=== PATIENT | female | born 1980 | race Caucasian/White ===

== ENCOUNTER 2025-01-07 09:52 | Emergency (ER) | payer OTHER, SELFPAY ==
--- NOTE | 2025-01-07 09:58 | ED_ITS ---
HPI - Dental/Oral General Chief complaint: Dental/Oral Stated complaint: Toothache Time Seen by Provider: 01/07/25 10:15 Source: patient, RN notes reviewed and old records reviewed Mode of arrival: ambulatory Limitations: no limitations History of Present Illness HPI Narrative: 44-year-old female presents to the [facility] with complaints of right lower dental pain. Multiple decayed teeth, receding gum line. Symptoms started 3 days ago Related Data Home Medications ?Medication ?Instructions ?Recorded ?Confirmed ?Last Taken ?Type Januvia 01/07/25 Unknown History glipizide 01/07/25 Unknown History metformin 01/07/25 Unknown History Allergies Allergy/AdvReac Type Severity Reaction Status Date / Time No Known Allergies Allergy Verified 01/07/25 10:04 Review of Systems Review of Systems: All systems reviewed & are unremarkable except as noted in HPI and below Constitutional: Constitutional: Reports no additional constitutional complaints ENT: Reports as per HPI and Reports dental pain Cardiovascular: Cardiovascular: Reports no additional cardiovascular complaints, Denies chest pain and Denies dyspnea Respiratory: Respiratory: Reports no additional respiratory complaints, Denies chest congestion, Denies cough and Denies dyspnea Musculoskeletal: Musculoskeletal: Reports no additional musculoskeletal complaints Integumentary/Breasts: Skin/Breast: Reports system reviewed and no additional complaints, except as docu PMFSH Comments At the time of my signature, I reviewed and agree with the nursing past medical, surgical, social, and family history. There is no relevant family history pertinent to the patient complaint. Exam Const: General: cooperative, healthy appearing, comfortable, no acute distress, well developed, alert and well nourished Nutritional Appearance: well nourished Orientation/consciousness: patient oriented x3 Limitations: no limitations HENMT: Head: normal to inspection Ears: hearing grossly normal bilaterally, external ears normal, TM's normal bilaterally, EAC's normal, mastoids normal and no periauricular adenopathy Mouth: Yes Normal oral and palatal mucosa present, Yes lip normal, Yes tongue normal and Yes moist mucous membranes Teeth and gingiva: abnormal tooth and associated gingiva, gingiva abnormal and poor dentition Other: Multiple missing, decayed teeth. Eyes: General: appearance normal, both eyes and all related structures Alignment and Position: alignment normal Neck: Neck: normal visual inspection, full ROM, no lymphadenopathy and no meningeal signs Chest: Chest palpation & inspection: normal inspection of the chest Resp: Effort & Inspection: normal respiratory effort and able to speak in complete sentences Auscultation: clear to auscultation bilaterally, no crackles, no rales, no rhonchi and no wheezes Cardio: Rate: regular rate Skin: General skin exam: normal color and no rashes or lesions noted Neuro: General: patient oriented x3, gait normal, moves all extremities and no meningeal signs Cognition (Neuro): normal cognition Speech: normal speech Gait exam (Neuro): Normal gait present Extrem: General: normal to inspection, full ROM, capillary refill normal and normal gait Psych: Appearance: grossly normal and well kempt Mental Status: mental status grossly normal Speech and movement: Normal speech and movement present and Clear speech present Affect: normal affect Attitude: cooperative Course Course Level of Care: Express Care Visit Vital Signs Vital signs: Vital Signs Temperature 97.3 F L 01/07/25 10:06 Pulse Rate 73 01/07/25 10:06 Respiratory Rate 16 01/07/25 10:06 Blood Pressure 147/84 H 01/07/25 10:06 Pulse Oximetry 98 01/07/25 10:06 Oxygen Delivery Room Air 01/07/25 10:06 Temperature 97.3 F L 01/07/25 10:06 Pulse Rate 73 01/07/25 10:06 Respiratory Rate 16 01/07/25 10:06 Blood Pressure 147/84 H 01/07/25 10:06 Pulse Oximetry 98 01/07/25 10:06 Oxygen Delivery Room Air 01/07/25 10:06 Reviewed MDM - Dental/Oral MDM Narrative Medical decision making narrative: Patient sitting in exam. Nontoxic stable. Patient in no acute distress. Patient presents with 3 day history of dental issues. Patient with poor dentition, inflammation to the right lower gingiva with receding gum line. Handout for dental providers given Patient appropriate for outpatient treatment with close follow-up. Will treat with antibiotics, ibuprofen Discharge instructions reviewed with patient, as well as provided in writing per nursing staff. The instructions also include specific and strict return/GO TO THE ER as well as f/u information. All questions have been answered, and the patient deny any further questions with discharge and discharge plan. Some parts of this dictation were generated by voice recognition software and may contain typographical and/or grammatical inaccuracies. Differential Diagnosis Differential diagnosis: Likely gingival abscess, dental caries, toothache and dental abscess Critical Care Time Critical Care Time Critical Care Time: No Discharge Plan Discharge Clinical Impression: Dental caries, Dental abscess Patient Disposition: Home Condition: Stable Instructions: Antibiotic Form, Dental Abscess (ED), Toothache (ED) Additional Instructions: Finish the entire course of antibiotics Calder teeth twice a day and use a good mouth wash. After every time you eat be sure to use salt water rinses. Apply ice to face to help with pain. Take Tylenol alternating with Motrin as needed for pain. You can alternate every 4 hours You need to follow-up with a dental provider as soon as possible for further evaluation and treatment. A list of dental providers has been given to you Follow up with a Primary Care Provider (PCP) about medical needs. A PCP can help keep you healthy by preventive medicine and screening. Go to the ER for New or worsening symptoms. Patient Language: Telugu Prescriptions: New penicillin V potassium 500 mg tablet 500 mg PO QID 7 Days Qty: 28 0RF No Action glipizide Januvia metformin Follow-up/Referrals: PHYSICIAN,HOT SEALING MACHINE OPERATOR [Primary Care Provider] - Stand Alone Forms: Work/School Release IP Time of Disposition: 10:32
[2025-01-07 10:06] VITALS: BP 147/84; PULSE 73; RESP 16; TEMP 36.3; O2SAT 98
== END 2025-01-07 10:38 | disposition home or self-care (01) ==
PROVIDERS: Emergency Provider Nurse Practitioner
DX: K02.9 Dental caries, unspecified (principal); K04.7 Periapical abscess without sinus; E11.9 Type 2 diabetes mellitus without complications
CPT/HCPCS: 99213; G0463

== ENCOUNTER 2025-06-22 13:08 | Emergency (ER) | payer OTHER, SELFPAY ==
[2025-06-22 13:11] VITALS: BP 164/71; PULSE 80; RESP 16; TEMP 36.4; O2SAT 100
--- NOTE | 2025-06-22 13:14 | ED.DENTAL ---
HPI - Dental/Oral General Chief complaint: Dental/Oral Stated complaint: Tooth Pain Time Seen by Provider: 06/22/25 13:14 Source: patient Mode of arrival: ambulatory Limitations: no limitations History of Present Illness HPI Narrative: 45 yo F presents with R lower dental pain. 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 afebrile. All systems reviewed and negative except as noted above. Related Data Home Medications ?Medication ?Instructions ?Recorded ?Confirmed ?Last Taken ?Type Januvia 01/07/25 Unknown History glipizide 01/07/25 Unknown History metformin 01/07/25 Unknown History atorvastatin 20 mg tablet mg 06/22/25 Unknown History Allergies Allergy/AdvReac Type Severity Reaction Status Date / Time No Known Allergies Allergy Verified 06/22/25 13:15 PMFSH Comments At time of signature, agree with nursing past medical, surgical, social and family history. There is no relevant family history pertinent to the presenting complaint. Exam Narrative: GENERAL: This is a well-nourished, well-developed patient, in no apparent distress. HEAD: normocephalic, atraumatic. EYES: PERRL. Sclera clear/white. Vision is grossly intact. EARS: External ears normal NOSE: External nose normal MOUTH: tooth #30 tender on palpation. decayed. filling present. mild erythema and swelling to gums. NECK: Neck supple, non-tender without lymphadenopathy, masses or thyromegaly. CARDIOVASCULAR: Regular rate and rhythm without murmurs, gallops, or rubs. RESPIRATORY: Clear to auscultation. Breath sounds equal bilaterally. No wheezes, rales, or rhonchi. SKIN: warm, Dry, intact with no suspicious lesions or rash, good texture and turgor. NEURO: awake, alert, and oriented to person, place and time. There were no obvious focal neurologic abnormalities. EXTREMITIES: No joint tenderness, effusion, or edema noted. Course Course Level of Care: Express Care Visit Vital Signs Vital signs: Reviewed MDM - Dental/Oral MDM Narrative Medical decision making narrative: will treat dental pain with amoxicillin. Recommend follow-up with dentist next available appointment. Differential Diagnosis Differential diagnosis: Likely toothache and dental abscess Discharge Plan Discharge Clinical Impression: Toothache Patient Disposition: Home Condition: Stable Instructions: Antibiotic Form, Toothache (ED) Additional Instructions: Take antibiotic as prescribed until gone. Take Tylenol or ibuprofen every 6-8 hours as needed for pain. Follow-up with dentist at next available appointment. Patient Language: Stateless Prescriptions: New ibuprofen 800 mg tablet 800 mg PO TID PRN (Reason: pain) Qty: 30 0RF amoxicillin 875 mg tablet 875 mg PO Q12H 10 Days Qty: 20 0RF No Action glipizide Januvia metformin atorvastatin 20 mg tablet Follow-up/Referrals: PHYSICIAN,FORMS DESIGNER [Primary Care Provider, Internal Medicine] Time of Disposition: 13:21
--- OUTSIDE RECORDS SUMMARY | 2025-06-22 13:14 | XMS_ITS | Clinical Summary ---
Author Organization [facility] Address [address] [place] [address] Phone Care Team Providers Care Static Balancer Name Role Phone Brandon Vargas MD Primary Care Provider [phone] Allergies No known active allergies Medications naproxen (NAPROSYN) 500 MG Tablet Take 1 Tablet by mouth 2 times daily as needed for Mild or more severe pain. 20 Tablet 04/28/2025 Active Encounters Date Type Department Care Team Description 04/28/2025 11:39 AM CDT - 04/28/2025 1:21 PM CDT Emergency [facility] Emergency [address] [place] [address] Jo Ann Villeda, TRADEMARK AFFIXER, SUSTAINABILITY SPECIALIST Acute right-sided low back pain without sciatica Discharge Disposition: Discharged to home or Selfcare 04/28/2025 Travel from Last 3 Months Social History Tobacco Use Types Packs/Day Years Used Date Smoking Tobacco: Unknown Tobacco Cessation:Counseling Given: Not Answered Comments Unknown Sex and Gender Information Value Date Recorded Sex Assigned at Not on file Legal Sex Female 11:38 AM CDT Gender Identity Not on file Sexual Orientation Not on file Last Filed Vital Signs Vital Sign Reading Time Taken Comments Blood Pressure 134/83 04/28/2025 1:15 PM CDT Pulse 64 04/28/2025 1:15 PM CDT Temperature 37.2 C (99 F) 04/28/2025 11:45 AM CDT Respiratory Rate 18 04/28/2025 1:15 PM CDT Oxygen Saturation 100% 04/28/2025 1:15 PM CDT Inhaled Oxygen Concentration - - Weight 142.9 kg (315 lb) 04/28/2025 11:45 AM CDT Height 165.1 cm (5' 5) 04/28/2025 11:45 AM CDT Body Mass Index 52.42 04/28/2025 11:45 AM CDT Plan of Treatment Health Maintenance Due Date Last Done Comments Hepatitis C Virus (HCV) Screening 1979 Mammogram 1979 TdaP Immunization 1979 Hepatitis B Immunization (1 of 3 - 19+ 3-dose series) 1998 Pap Smear 02/05/2000 Cervical Cancer Screening (CCS) 2009 HPV/Cotest 2009 Discussion re Starting/Frequ ency of Mammograms 2019 Cologuard 02/05/2024 Colonoscopy 02/05/2024 Colorectal Cancer Screening 02/05/2024 Immunochemical Fecal Occult Blood 02/05/2024 Influenza Immunization (#1) 2025 SARS-COV-2 Immunization ( season) 2025 Respiratory Syncytial Virus (RSV) Immunization (Adult) (1 - 1-dose 75+ series) 2054 Human Papillomavirus (HPV) Immunization Aged Out No longer eligible b ased on patient's age to complete this topic Meningococcal Immunization (ACWY) Aged Out No longer eligible based on patient's age to complete this topic Pneumococcal Immunization Combined Aged Out No longer eligible based on patient's age to complete this topic Rotavirus Immunization Aged Out No lo nger eligible based on patient's age to complete this topic Procedures Procedure Name Priority Date/Time Associated Diagnosis Comments CT RENAL STONE STUDY (ABDOMEN AND PELVIS W/O CONTRAST) Stat with Interpretation 04/28/2025 12:28 PM CDT POCT URINE HCG () STAT 04/28/2025 12:08 PM CDT CBC WITH AUTO DIFFERENTIAL STAT 04/28/2025 12:05 PM CDT URINALYSIS REFLEX IF INDICATED BY ABNORMAL RESULTS STAT 04/28/2025 12:05 PM CDT LIPASE STAT 04/28/2025 12:05 PM CDT CMP (COMPREHENSIVE METABOLIC PANEL) STAT 04/28/2025 12:05 PM CDT COMPLETE BLOOD COUNT (CBC) WITH DIFF STAT 04/28/2025 12:05 PM CDT from Last 3 Months Results * CT RENAL STONE STUDY (ABDOMEN AND PELVIS W/O CONTRAST) (04/28/2025 12:28 PM CDT) Anatomical Region Laterality Modality Abdomen N/A Computed Tomogra phy 04/28/2025 1:05 PM CDT Impressions 04/28/2025 1:07 PM CDT IMPRESSION: No acute finding. Narrative 04/28/2025 1:07 PM CDT EXAM DESCRIPTION: CT RENAL STONE STUDY (ABDOMEN AND PELVIS W/O CONTRAST) REASON FOR STUDY: Intermittent right-sided flank pain that has been present for 2-3 weeks. TECHNIQUE: CT scan of the abdomen and pelvis performed without intravenous and without oral contrast using helical scanning technique. Reconstructed coronal and sagittal MPR images reviewed. All images stored on PACS. Automated exposure control was used as a dose optimization technique for this examination. COMPARISON: None available FINDINGS: The sensitivity for detection of visceral lesions is diminished without the use of intravenous contrast. LOWER CHEST: No significant pulmonary abnormalities. No effusion. LIVER: Normal size. No identified cystic or solid masses. GALLBLADDER: Normally distended with multiple subcentimeter stones. No surrounding induration. BILE DUCTS: No intrahepatic or extrahepatic ductal dilatation. SPLEEN: Normal size. No focal lesions. PANCREAS: No identified cystic or solid masses. No significant calcifications. No adjacent inflammation or peripancreatic fluid collections. Pancreatic duct not dilated. ADRENALS: Normal. KIDNEYS/URINARY TRACT: No identified significant cystic or solid masses. No stones. No hydronephrosis or hydroureter. Urinary bladder is unremarkable. GI: No dilated bowel loops. No obvious wall thickening. Normal appendix. No significant diverticular disease. PERITONEUM: No ascites or free air. RETROPERITONEUM: No mass or adenopathy. REPRODUCTIVE: No significant abnormality. VASCULATURE: No abdominal aortic aneurysm. MUSCULOSKELETAL: No significant abnormality. OTHER: No other abnormality. THIS IS AN ELECTRONICALLY VERIFIED FINAL REPORT 04/28/2025 1:05 PM - Electronically signed by Buck Vargas M.D. RB: APOLONIA Report ID: [id number] Reading Location: [id number] Procedure Note Buck Vargas MD - 04/28/2025 EXAM DESCRIPTION: CT RENAL STONE STUDY (ABDOMEN AND PELVIS W/O CONTRAST) REASON FOR STUDY: Intermittent right-sided flank pain that has been present for 2-3 weeks. TECHNIQUE: CT scan of the abdomen and pelvis performed without intravenous and without oral contrast using helical scanning technique. Reconstructed coronal and sagittal MPR images reviewed. All images stored on PACS. Automated exposure control was used as a dose optimization technique for this examination. COMPARISON: None available FINDINGS: The sensitivity for detection of visceral lesions is diminished without the use of intravenous contrast. LOWER CHEST: No significant pulmonary abnormalities. No effusion. LIVER: Normal size. No identified cystic or solid masses. GALLBLADDER: Normally distended with multiple subcentimeter stones. No surrounding induration. BILE DUCTS: No intrahepatic or extrahepatic ductal dilatation. SPLEEN: Normal size. No focal lesions. PANCREAS: No identified cystic or solid masses. No significant calcifications. No adjacent inflammation or peripancreatic fluid collections. Pancreatic duct not dilated. ADRENALS: Normal. KIDNEYS/URINARY TRACT: No identified significant cystic or solid masses. No stones. No hydronephrosis or hydroureter. Urinary bladder is unremarkable. GI: No dilated bowel loops. No obvious wall thickening. Normal appendix. No significant diverticular disease. PERITONEUM: No ascites or free air. RETROPERITONEUM: No mass or adenopathy. REPRODUCTIVE: No significant abnormality. VASCULATURE: No abdominal aortic aneurysm. MUSCULOSKELETAL: No significant abnormality. OTHER: No other abnormality. THIS IS AN ELECTRONICALLY VERIFIED FINAL REPORT 04/28/2025 1:05 PM - Electronically signed by Buck Vargas M.D. RB: APOLONIA Report ID: [id number] Reading Location: [id number] IMPRESSION: No acute finding. Jo Ann Villeda APRN, SUSTAINABILITY SPECIALIST IMG CT ORDERABLES Fin al Result * POCT Urine HCG () (04/28/2025 12:08 PM CDT) POC URINE Negative [facility] POC URINE CONTROL Antichecking Iron Worker Pass [facility] Urine 04/28/2025 12:0 8 PM CDT Jo Ann Villeda APRN, INDRA POINT OF CARE TESTING (MANUAL) Final Result [facility] [address] [place] [address] * (ABNORMAL) URINALYSIS REFLEX IF INDICATED BY ABNORMAL RESULTS (04/28/2025 12:05 PM CDT) Pathologist [facility] SPECIFIC GRAVITY 1.025 1.003 - 1.030 04/28/2025 12:49 PM CDT [facility] URINE PH 5.0 5.0 - 9.0 04/28/2025 12:49 PM CDT [facility] WBC ESTERASE 100 /uL(A) Negative 04/28/2025 12:49 PM CDT [facility] NITRITE Negative Negative 04/28/2025 12:49 PM CDT [facility] PROTEIN, RANDOM URINE 15 mg/dL(A) Negative 04/28/2025 12:49 PM CDT [facility] URINE GLUCOSE, QUAL Negative Negative 04/28/2025 12:49 PM CDT [facility] URINE KETONES Negative Negative 04/28/2025 12:49 PM CDT [facility] UROBILINOGEN Normal Normal mg/dL 04/28/2025 12:49 PM CDT [facility] URINE BLOOD Negative Negative charles/ul 04/28/2025 12:49 PM CDT [facility] URINALYSIS COLOR Yellow 04/28/20 12:49 PM CDT [facility] URINALYSIS CLARITY Slightly Cloudy 04/28/2025 12:49 PM CDT [facility] WBC (Urine) 0-5 Negative, 0-5 /hpf 04/28/2025 12:49 PM CDT [facility] URINE RBC'S 0-2 Negative, 0-2 /hpf 04/28/2025 12:49 PM CDT [facility] EPITHELIAL CELLS Large amount squamous /lpf 04/28/2025 12:49 PM CDT [facility] BACTERIA, URINE Few(A) Negative /hpf 04/28/2025 12:49 PM CDT [facility] TRICHOMONAS (UR) Few(A) Negative 04/28/20 12:49 PM CDT [facility] Urine URINE SPECIMEN OBTAINED BY CLEAN CATCH PROCEDURE / Unknown Non-Phlebotomy Collection / Unknown 04/28/2025 12:05 PM CDT 04/28/2025 12:22 PM CDT us Jo Ann Villeda TRADEMARK AFFIXER, SUSTAINABILITY SPECIALIST URINE ORDERABLES Maritza l Result [facility] [address] [place] [address] * (ABNORMAL) CBC with Auto Differential (04/28/2025 12:05 PM CDT) WBC 9.03 4.00 - 12.00 10(3)/mcL 04/28/2025 12:30 PM CDT [facility] RBC 4.18 3.80 - 5.30 10(6)/mcL 04/28/2025 12:30 PM CDT [facility] HEMOGLOBIN (HGB) 12.8 12.0 - 15.8 g/dL 04/28/2025 12:30 PM CDT [facility] HEMATOCRIT (HCT) 37.5 36.0 - 47.0 % 04/28/2025 12:30 PM CDT [facility] MCV 89.7 82.0 - 96.0 fL 04/28/2025 12:30 PM CDT [facility] MCH 30.6 26.0 - 34.0 pg 04/28/2025 12:30 PM CDT [facility] MCHC 34.1 31.0 - 36.0 g/dL 04/28/2025 12:30 PM CDT [facility] PLATELET COUNT 250 140 - 440 10(3)/mcL 04/28/2025 12:30 PM CDT [facility] RDW 12.3 11.8 - 15.5 % 04/28/2025 12:30 PM CDT [facility] MPV 10.7 9.7 - 12.4 fL 04/28/2025 12:30 PM CDT [facility] NEUTROPHILS 63.9 47.0 - 73.0 % 04/28/2025 12:30 PM CDT [facility] LYMPHOCYTES 27.1 18.0 - 42.0 % 04/28/2025 12:30 PM CDT [facility] MONOCYTES 7.2 4.0 - 12.0 % 04/28/2025 12:30 PM CDT [facility] EOSINOPHILS 1.1 0.0 - 5.0 % 04/28/2025 12:30 PM CDT [facility] BASOPHILS 0.3 0.0 - 1.0 % 04/28/2025 12:30 PM CDT [facility] IMMATURE GRANULOCYTE 0.4 0.0 - 0.4 % 04/28/2025 12:30 PM CDT [facility] Comment:Immature Granulocyte s includes Metamyelocytes, Myelocytes, and Promyelocytes. ABSOLUTE NEUTROPHILS 5.76 1.60 - 7.70 10(3)/mcL 04/28/2025 12:30 PM CDT [facility] ABSOLUTE LYMPHOCYTES 2.45 1.30 - 3.20 10(3)/mcL 04/28/2025 12:30 PM CDT [facility] ABSOLUTE MONOCYTES 0.65 0.20 - 1.00 10(3)/mcL 04/28/2025 12:30 PM CDT [facility] ABSOLUTE EOSINOPHIL 0.10 0.00 - 0.40 10(3)/mcL 04/28/2025 12:30 PM CDT [facility] ABSOLUTE BASOPHILS 0.03 0.00 - 0.10 10(3)/mcL 04/28/2025 12:30 PM CDT [facility] ABSOLUTE IMMATURE GRANULOCYTE 0.04(H) 0.00 - 0.03 10 (3) mcL. 04/28/2025 12:30 PM CDT [facility] NRBC PER 100 WBC 0 04/28/20 12:30 PM CDT [facility] Blood Venipuncture / Unknown 04/28/2025 12:05 PM CDT 04/28/2025 12:22 PM CDT us Jo Ann Villeda APRN, SUSTAINABILITY SPECIALIST HEMATOLOGY ORDERABLES Final Result [facility] [address] [place] [address] * Lipase [id number] (04/28/2025 12:05 PM CDT) Pathologist [facility] LIPASE 15 8 - 78 U/L 04/28/2025 12:50 PM CDT [facility] Blood Venipuncture / Unknown 04/28/2025 12:05 PM CDT 04/28/2025 12:22 PM CDT us Jo Ann Villeda APRN, SUSTAINABILITY SPECIALIST CHEMISTRY ORDERABLES Final Result [facility] [address] [place] [address] * (ABNORMAL) Comprehensive Metabolic Panel (Cmp) [id number] (04/28/2025 12:05 PM CDT) SODIUM 136 136 - 145 mmol/L 04/28/2025 12:50 PM CDT [facility] POTASSIUM 4.0 3.5 - 5.1 mmol/L 04/28/2025 12:50 PM CDT [facility] CHLORIDE 105 98 - 107 mmol/L 04/28/2025 12:50 PM CDT [facility] CO2, VENOUS 23 22 - 30 mmol/L 04/28/2025 12:50 PM CDT [facility] ANION GAP 12.0 <18.0 mmol/L 04/28/2025 12:50 PM CDT [facility] GLUCOSE 138(H) 70 - 99 mg/dL 04/28/2025 12:50 PM CDT [facility] BUN 10 5 - 18 mg/dL 04/28/2025 12:50 PM CDT [facility] CREATININE, BLOOD 0.62 0.60 - 1.00 mg/dL 04/28/2025 12:50 PM CDT [facility] BUN/CREATININE RATIO 16 12 - 20 ratio 04/28/2025 12:50 PM CDT [facility] TOTAL PROTEIN 7.0 6.0 - 8.0 g/dL 04/28/2025 12:50 PM CDT [facility] ALBUMIN 4.2 3.5 - 5.0 g/dL 04/28/2025 12:50 PM CDT [facility] A/G RATIO 1.5 1.0 - 2.2 04/28/2025 12:50 PM CDT [facility] CALCIUM 9.1 8.7 - 10.5 mg/dL 04/28/2025 12:50 PM CDT [facility] T BILI 0.7 0.2 - 1.2 mg/dL 04/28/2025 12:50 PM CDT [facility] SGOT (AST) 16 <43 U/L 04/28/2025 12:50 PM CDT [facility] SGPT (ALT) 12 <56 U/L 04/28/2025 12:50 PM CDT [facility] ALKALINE PHOSPHATASE 50 40 - 150 U/L 04/28/2025 12:50 PM CDT [facility] GFR, ESTIMATED >60 >=60 04/28/2025 12:50 PM CDT [facility] Comment: Creatinine Clearance is the preferred criteria for selecting drug dose adjustments in renally impaired patients. The GFR is provided as additional pertinent clinical information. GFR is reported in mL/min/1.73 sq m. Calculation based on the Chronic Kidney Disease Epidemiology Collaboration (CKD- EPI) equation refit without adjustment for race. GFR, EST. >60 >=60 025 12:50 PM CDT [facility] GFR, EST. NONAFRICAN >60 >=60 04/28/2025 12:50 PM CDT [facility] Blood Venipuncture / Unknown 04/28/2025 12:05 PM CDT 04/28/2025 12:22 PM CDT Jo Ann Villeda APRN, SUSTAINABILITY SPECIALIST CHEMISTRY ORDERABLES Final Result [facility] [address] [place] [address] from Last 3 Months Insurance MEDICAID [employer] Care Teams Static Balancer Relationship Specialty Start Date End Date Brandon Vargas MD [address] [place] [address] [place] [address] PCP - General Family Medicine 04/28/25
== END 2025-06-22 13:27 | disposition home or self-care (01) ==
PROVIDERS: Emergency Provider Nurse Practitioner Family
DX: K08.89 Other specified disorders of teeth and supporting structures (principal); E11.9 Type 2 diabetes mellitus without complications; Z79.84 Long term (current) use of oral hypoglycemic drugs; E78.00 Pure hypercholesterolemia, unspecified
CPT/HCPCS: 99213; G0463

== ENCOUNTER 2025-07-20 10:01 | Emergency (ER) | payer OTHER, SELFPAY ==
[2025-07-20 10:04] VITALS: BP 133/85; PULSE 84; RESP 24; TEMP 36.2; O2SAT 100
--- NOTE | 2025-07-20 10:18 | ED.DENTAL ---
HPI - Dental/Oral General Chief complaint: Dental/Oral Stated complaint: tooth pain Time Seen by Provider: 07/20/25 10:15 Source: patient Mode of arrival: ambulatory Limitations: no limitations History of Present Illness HPI Narrative: Foc is a 45-year-old female patient presenting to the clinic today with complaints of left lower dental pain x2 days. She reports she has swelling in the left lower jaw. Tender to palpate over this area. No fevers, chills, body aches. Denies any URI symptoms or ear pain. Rates pain 06/08 currently. Has taken some ibuprofen for pain. Related Data Home Medications ?Medication ?Instructions ?Recorded ?Confirmed ?Last Taken ?Type Januvia 01/07/25 Unknown History atorvastatin 20 mg tablet mg 06/22/25 Unknown History glipizide 10 mg tablet mg 07/20/25 Unknown History metformin 1,000 mg tablet mg 07/20/25 Unknown History Allergies Allergy/AdvReac Type Severity Reaction Status Date / Time No Known Allergies Allergy Verified 07/20/25 10:08 Review of Systems Review of Systems: Pertinent positives per HPI. Patient denies any fever, chills, rash, headache, visual changes, dizziness, cough, runny nose, sore throat, shortness of breath, chest pain, palpitations, nausea, vomiting, diarrhea, constipation, abdominal pain, or any urinary issues. PMFSH Comments At the time of my signature, I reviewed and agree with the nursing past medical, surgical, social, and family history. There is no relevant family history pertinent to the patient complaint. Exam Narrative: General: Well-developed, morbidly obese, in no apparent distress Head: Normocephalic, atraumatic Eyes: Pupils equally round and reactive to light bilaterally, EOM intact, sclera and conjunctive clear, no discharge, lids normal Ears: TMs intact and clear, ear canals clear, no drainage, grossly hearing normal. Nose: Nares patent, no discharge, no inflammation, no sinus tenderness. Mouth: Oropharynx without lesions or masses, poor dentition, MMM. Left lower jaw swelling with tenderness and tenderness to palpation over the left posterior molar. Neck: Supple, trachea midline, no enlargement of anterior or posterior cervical nodes, no thyroid masses or goiter palpable. Cardio: Regular rate and rhythm, s1 and s2 normal, no murmur appreciated. Resp: Clear to auscultation bilaterally anteriorly and posteriorly, no rhonchi, rales, wheezing or rubs Course Course Emergency Course: Portions of this record may have been created with voice recognition software. Level of Care: Express Care Visit Vital Signs Vital signs: Vital Signs Temperature 36.2 C L 07/20/25 10:04 Pulse Rate 84 07/20/25 10:04 Respiratory Rate 24 H 07/20/25 10:04 Blood Pressure 133/85 07/20/25 10:04 Pulse Oximetry 100 07/20/25 10:04 Oxygen Delivery Room Air 07/20/25 10:04 Temperature 36.2 C L 07/20/25 10:04 Pulse Rate 84 07/20/25 10:04 Respiratory Rate 24 H 07/20/25 10:04 Blood Pressure 133/85 07/20/25 10:04 Pulse Oximetry 100 07/20/25 10:04 Oxygen Delivery Room Air 07/20/25 10:04 Vital signs reviewed MDM - Dental/Oral MDM Narrative Medical decision making narrative: At the time of visit patient is resting comfortably on the exam table. Patient appears to be nontoxic. complaints of left lower dental pain x2 days. She reports she has swelling in the left lower jaw. Tender to palpate over this area. No fevers, chills, body aches. Denies any URI symptoms or ear pain. Rates pain 9/10 currently. Has taken some ibuprofen for pain. On exam patient has poor dentition with jaw swelling and tenderness to palpation over the left posterior molar. Plan: I suspect patient has a dental abscess/dental infection. Prescription for Augmentin and ibuprofen was sent to the pharmacy. Work note was given per patient's request. Supportive measures were discussed with the patient and they voiced understanding discharge instructions and agrees to treatment plan. Return precautions reviewed Differential Diagnosis Differential diagnosis: Likely gingival abscess, dental caries, toothache, dental abscess, fracture of tooth and aphthous ulcer Discharge Plan Discharge Clinical Impression: Dental abscess Patient Disposition: Home Condition: Stable Instructions: Antibiotic Form, Dental Abscess (ED) Additional Instructions: Keep a tight control in your blood sugar. Take medications as prescribed-Augmentin and ibuprofen Increase fluids and stay well hydrated May take Tylenol/Motrin as needed for pain or fever May apply Orajel to the affected area to help alleviate pain May apply warm or cool compress to the affected area to help alleviate pain Follow-up with your dentist as soon as possible If symptoms worsen-you develop fever, increase in swelling, increase in pain, difficulty swallowing, or any other concerning symptoms recommend going to the emergency room Patient Language: Mongolian Prescriptions: New amoxicillin-pot clavulanate 875-125 mg tablet 1 tablet PO Q12H 10 Days Qty: 20 0RF ibuprofen 800 mg tablet 800 mg PO TID PRN (Reason: pain) 10 Days Qty: 30 0RF No Action Januvia glipizide 10 mg tablet metformin 1,000 mg tablet atorvastatin 20 mg tablet Follow-up/Referrals: PHYSICIAN,STICK FEEDER [Primary Care Provider, Internal Medicine] Stand Alone Forms: Work/School Release IP Time of Disposition: 10:20 Quality NIHSS Nursing Documentation ED NIHSS nursing documentation: reviewed/agree
--- OUTSIDE RECORDS SUMMARY | 2025-07-20 11:49 | XMS_ITS | Clinical Summary ---
Author Organization [facility] Address [address] [place] [address] Phone Care Team Providers Care Gynecological Assistant Name Role Phone Brandon Vargas MD Primary Care Provider [phone] Allergies No known active allergies Medications naproxen (NAPROSYN) 500 MG Tablet Take 1 Tablet by mouth 2 times daily as needed for Mild or more severe pain. 20 Tablet 04/28/2025 Active Encounters Date Type Department Care Team Description 04/28/2025 11:39 AM CDT - 04/28/2025 1:21 PM CDT Emergency [facility] Emergency [address] [place] [address] Jo Ann Villeda, OUTSOLE SCHEDULER, VP ANCILLARY Acute right-sided low back pain without sciatica [...] Buck Vargas M.D. RB: APOLONIA Report ID: [id number] Reading Location: [id number] Procedure Note Buck Vargas MD - 04/28/2025 [...] Buck Vargas M.D. RB: APOLONIA Report ID: [id number] Reading Location: [id number] IMPRESSION: No acute finding. Jo Ann Villeda APRN, VP ANCILLARY IMG CT ORDERABLES Fin al Result * POCT Urine HCG () (04/28/2025 12:08 PM CDT) POC URINE Negative [facility] POC URINE CONTROL [place] [facility] Urine 04/28/2025 12:0 8 PM CDT Jo Ann Villeda APRN, INDRA POINT OF CARE TESTING (MANUAL) Final Result [facility] [address] [place] [address] * (ABNORMAL) URINALYSIS REFLEX IF INDICATED BY ABNORMAL RESULTS (04/28/2025 12:05 PM CDT) Pathologist [facility] SPECIFIC GRAVITY 1.025 1.003 - 1.030 04/28/2025 12:49 PM CDT [facility] URINE PH 5.0 5.0 - 9.0 04/28/2025 12:49 PM CDT [facility] WBC ESTERASE 100 /uL(A) Negative 04/28/2025 12:49 PM CDT [facility] NITRITE Negative Negative 04/28/2025 12:49 PM CDT [facility] PROTEIN, RANDOM URINE 15 mg/dL(A) Negative 04/28/2025 12:49 PM CDT [facility] URINE GLUCOSE, QUAL Negative Negative 04/28/2025 12:49 PM CDT [facility] URINE KETONES Negative Negative 04/28/2025 12:49 PM CDT [facility] UROBILINOGEN Normal Normal mg/dL 04/28/2025 12:49 PM CDT [facility] URINE BLOOD Negative Negative charles/ul 04/28/2025 12:49 PM CDT [facility] URINALYSIS COLOR Yellow 04/28/20 12:49 PM CDT [facility] URINALYSIS CLARITY Slightly Cloudy 04/28/2025 12:49 PM CDT [facility] WBC (Urine) 0-5 Negative, 0-5 /hpf 04/28/2025 12:49 PM CDT [facility] URINE RBC'S 0-2 Negative, 0-2 /hpf 04/28/2025 12:49 PM CDT [facility] EPITHELIAL CELLS Large amount squamous /lpf 04/28/2025 12:49 PM CDT [facility] BACTERIA, URINE Few(A) Negative /hpf 04/28/2025 12:49 PM CDT [facility] TRICHOMONAS (UR) Few(A) Negative 04/28/20 12:49 PM CDT [facility] Urine URINE SPECIMEN OBTAINED BY CLEAN CATCH PROCEDURE / Unknown Non-Phlebotomy Collection / Unknown 04/28/2025 12:05 PM CDT 04/28/2025 12:22 PM CDT us Jo Ann Villeda OUTSOLE SCHEDULER, VP ANCILLARY URINE ORDERABLES Maritza l Result [facility] [address] [place] [address] * (ABNORMAL) CBC with Auto Differential (04/28/2025 12:05 PM CDT) WBC 9.03 4.00 - 12.00 10(3)/mcL 04/28/2025 12:30 PM CDT [facility] RBC 4.18 3.80 - 5.30 10(6)/mcL 04/28/2025 12:30 PM CDT [facility] HEMOGLOBIN (HGB) 12.8 12.0 - 15.8 g/dL 04/28/2025 12:30 PM CDT [facility] HEMATOCRIT (HCT) 37.5 36.0 - 47.0 % 04/28/2025 12:30 PM CDT [facility] MCV 89.7 82.0 - 96.0 fL 04/28/2025 12:30 PM CDT [facility] MCH 30.6 26.0 - 34.0 pg 04/28/2025 12:30 PM CDT [facility] MCHC 34.1 31.0 - 36.0 g/dL 04/28/2025 12:30 PM CDT [facility] PLATELET COUNT 250 140 - 440 10(3)/mcL 04/28/2025 12:30 PM CDT [facility] RDW 12.3 11.8 - 15.5 % 04/28/2025 12:30 PM CDT [facility] MPV 10.7 9.7 - 12.4 fL 04/28/2025 12:30 PM CDT [facility] NEUTROPHILS 63.9 47.0 - 73.0 % 04/28/2025 12:30 PM CDT [facility] LYMPHOCYTES 27.1 18.0 - 42.0 % 04/28/2025 12:30 PM CDT [facility] MONOCYTES 7.2 4.0 - 12.0 % 04/28/2025 12:30 PM CDT [facility] EOSINOPHILS 1.1 0.0 - 5.0 % 04/28/2025 12:30 PM CDT [facility] BASOPHILS 0.3 0.0 - 1.0 % 04/28/2025 12:30 PM CDT [facility] IMMATURE GRANULOCYTE 0.4 0.0 - 0.4 % 04/28/2025 12:30 PM CDT [facility] Comment:Immature Granulocyte s includes Metamyelocytes, Myelocytes, and Promyelocytes. ABSOLUTE NEUTROPHILS 5.76 1.60 - 7.70 10(3)/mcL 04/28/2025 12:30 PM CDT [facility] ABSOLUTE LYMPHOCYTES 2.45 1.30 - 3.20 10(3)/mcL 04/28/2025 12:30 PM CDT [facility] ABSOLUTE MONOCYTES 0.65 0.20 - 1.00 10(3)/mcL 04/28/2025 12:30 PM CDT [facility] ABSOLUTE EOSINOPHIL 0.10 0.00 - 0.40 10(3)/mcL 04/28/2025 12:30 PM CDT [facility] ABSOLUTE BASOPHILS 0.03 0.00 - 0.10 10(3)/mcL 04/28/2025 12:30 PM CDT [facility] ABSOLUTE IMMATURE GRANULOCYTE 0.04(H) 0.00 - 0.03 10 (3) mcL. 04/28/2025 12:30 PM CDT [facility] NRBC PER 100 WBC 0 04/28/20 12:30 PM CDT [facility] Blood Venipuncture / Unknown 04/28/2025 12:05 PM CDT 04/28/2025 12:22 PM CDT us Jo Ann Villeda APRN, VP ANCILLARY HEMATOLOGY ORDERABLES Final Result [facility] [address] [place] [address] * Lipase [id number] (04/28/2025 12:05 PM CDT) Pathologist [facility] LIPASE 15 8 - 78 U/L 04/28/2025 12:50 PM CDT [facility] Blood Venipuncture / Unknown 04/28/2025 12:05 PM CDT 04/28/2025 12:22 PM CDT us Jo Ann Villeda APRN, VP ANCILLARY CHEMISTRY ORDERABLES Final Result [facility] [address] [place] [address] * (ABNORMAL) Comprehensive Metabolic Panel (Cmp) [id number] (04/28/2025 12:05 PM CDT) SODIUM 136 136 - 145 mmol/L 04/28/2025 12:50 PM CDT [facility] POTASSIUM 4.0 3.5 - 5.1 mmol/L 04/28/2025 12:50 PM CDT [facility] CHLORIDE 105 98 - 107 mmol/L 04/28/2025 12:50 PM CDT [facility] CO2, VENOUS 23 22 - 30 mmol/L 04/28/2025 12:50 PM CDT [facility] ANION GAP 12.0 <18.0 mmol/L 04/28/2025 12:50 PM CDT [facility] GLUCOSE 138(H) 70 - 99 mg/dL 04/28/2025 12:50 PM CDT [facility] BUN 10 5 - 18 mg/dL 04/28/2025 12:50 PM CDT [facility] CREATININE, BLOOD 0.62 0.60 - 1.00 mg/dL 04/28/2025 12:50 PM CDT [facility] BUN/CREATININE RATIO 16 12 - 20 ratio 04/28/2025 12:50 PM CDT [facility] TOTAL PROTEIN 7.0 6.0 - 8.0 g/dL 04/28/2025 12:50 PM CDT [facility] ALBUMIN 4.2 3.5 - 5.0 g/dL 04/28/2025 12:50 PM CDT [facility] A/G RATIO 1.5 1.0 - 2.2 04/28/2025 12:50 PM CDT [facility] CALCIUM 9.1 8.7 - 10.5 mg/dL 04/28/2025 12:50 PM CDT [facility] T BILI 0.7 0.2 - 1.2 mg/dL 04/28/2025 12:50 PM CDT [facility] SGOT (AST) 16 <43 U/L 04/28/2025 12:50 PM CDT [facility] SGPT (ALT) 12 <56 U/L 04/28/2025 12:50 PM CDT [facility] ALKALINE PHOSPHATASE 50 40 - 150 U/L 04/28/2025 12:50 PM CDT [facility] GFR, ESTIMATED >60 >=60 04/28/2025 12:50 PM CDT [facility] Comment: Creatinine Clearance is the preferred criteria for selecting drug dose adjustments in renally impaired patients. The GFR is provided as additional pertinent clinical information. GFR is reported in mL/min/1.73 sq m. Calculation based on the Chronic Kidney Disease Epidemiology Collaboration (CKD- EPI) equation refit without adjustment for race. GFR, EST. >60 >=60 025 12:50 PM CDT [facility] GFR, EST. NONAFRICAN >60 >=60 04/28/2025 12:50 PM CDT [facility] Blood Venipuncture / Unknown 04/28/2025 12:05 PM CDT 04/28/2025 12:22 PM CDT Jo Ann Villeda APRN, VP ANCILLARY CHEMISTRY ORDERABLES Final Result [facility] [address] [place] [address] from Last 3 Months Insurance MEDICAID [employer] Care Teams Gynecological Assistant Relationship Specialty Start Date End Date Brandon Vargas MD [address] [place] [address] [place] [address] PCP - General Family Medicine 04/28/25
== END 2025-07-20 10:23 | disposition home or self-care (01) ==
PROVIDERS: Emergency Provider Nurse Practitioner Family
DX: K04.7 Periapical abscess without sinus (principal); E11.9 Type 2 diabetes mellitus without complications; Z79.84 Long term (current) use of oral hypoglycemic drugs; E78.00 Pure hypercholesterolemia, unspecified
CPT/HCPCS: 99213; G0463